=== PATIENT | female | born 1985 | race Caucasian/White ===

== ENCOUNTER 2023-12-08 09:18 | Emergency (ER) | payer OTHER, SELFPAY ==
[2023-12-08 09:28] VITALS: BP 116/82; PULSE 84
--- NOTE | 2023-12-08 09:33 | ED_ITS ---
HPI - Nausea/Vomiting/Diarrhea General Chief complaint: Medical Clearance Stated complaint: VOMITING AFTER MEALS,H/O BULIMIA,FROM [facility] Time Seen by Provider: 12/08/23 09:27 Source: patient and EMS Mode of arrival: EMS Limitations: no limitations History of Present Illness ED Provider: Dr. Fallon HPI Narrative: Patient has been in [facility] since 11/30. She is a bulemic and continues to vomit. She presents to have her electrolytes checked. Related Data Allergies Allergy/AdvReac Type Severity Reaction Status Date / Time No Known Allergies Allergy Verified 12/08/23 09:44 Review of Systems 2 Review of Systems: Yes all other systems are reviewed and are negative Neurologic: Denies Sensory deficit (Neuro) [facility] Social History Social History Advance Directives: No Advance Directives Information Provided: Yes Do you have a plan to hurt others: No Plan Physical Exam 2 Vital Signs: Vital Signs: Last Vital Signs Temp 98.3 F 12/08/23 10:25 Pulse 76 12/08/23 10:25 Resp 14 12/08/23 10:25 BP 92/63 12/08/23 10:25 Pulse Ox 97 12/08/23 10:25 O2 Del Method Room Air 12/08/23 10:25 BMI result Body Mass Index 23.6 Const: Other: thin female looking older than stated age Orientation/consciousness: oriented to person and patient oriented x3 L imitations: no limitations HEENT: Head: Yes normal to inspection Ears: external ears normal General nose exam: Normal external nose present Mouth: Normal oral and palatal mucosa present and oropharynx normal Throat: Yes posterior oropharynx normal Eyes: General: appearance normal, both eyes and all related structures Neck: Other: supple Neck: Yes normal visual inspection Chest: Chest palpation & inspection: normal inspection of the chest Resp: Auscultation: clear to auscultation bilaterally Cardio: Jugular venous distension: no JVD Rate: regular rate Rhythm: r egular rhythm Heart sounds: S1 normal heart sound present and S2 normal heart sound present GI: Inspection: Yes normal to inspection Palpation (GI): Soft to palpation, nontender and No hepatosplenomegaly present Auscultation: normal bowel sounds : General: Yes no CVA tenderness Back/Spine/Pelvis: Back: no CVA tenderness Skin: General skin exam: no rashes or lesions noted Neuro: General: oriented to person and patient oriented x3 Cranial nerves: Yes CN's II-XII intact bilaterally Motor exam (neuro): 5/5 motor strength present throughout Sensory Exam: No Sensory deficit (Neuro) Extrem: General: Yes normal to inspection Psych: Appearance: grossly normal Course Reevaluation(s) Reevaluation #1: patient with mild hypokalemia gave a dose of potassium and will dc back to [facility] Time: 11:03 Medical Decision Making Differential Diagnosis Differential Diagnoses: The differential diagnosis associated with the presentation includes (bulemia, anorexia, depression, viral gastritis) Admission/Observation Consideration of admission/observation: Escalation of care including admission/observation considered (upon arrival patient considered for admission) Lab Data 12/08/23 09:49 12/08/23 09:49 Labs: Lab Results 12/08/23 12/08/23 Range/Units 09:49 09:57 WBC 3.9 L (4.8-10.8) X10*3/uL RBC 4.85 (4.20-5.50) X10*6/uL Hgb 14.2 (12.0-16.0) g/dl Hct 41.1 (37.0-47.0) % MCV 84.7 (80.0-98.0) fL MCH 29.3 (27.0-33.0) pg MCHC 34.5 (31.0-35.0) g/dl RDW 13.4 (11.0-16.0) % Plt Count 254 (160-400) X10*3/uL MPV 10.3 (9.4-12.3) fL Immature Gran % (Auto) 0.3 (0.0-0.4) % Neut % (Auto) 39.8 L (45-73) % Lymph % (Auto) 43.9 H (20-40) % [place] % (Auto) 11.4 H (2-11) % Eos % (Auto) 3.6 (0-4) % Baso % (Auto) 1.0 (0-2) % Lymph # (Auto) 1.7 (1.2-4.9) X10*3/uL [place] # (Auto) 0.4 (0.1-1.2) X10*3/uL Eos # (Auto) 0.1 (0.0-0.4) X10*3/uL Baso # (Auto) 0.0 (0.0-0.2) X10*3/uL Abs Immat Gran (auto) 0.01 (0.00-0.03) X10*3/uL Absolute Neuts (auto) 1.5 L (2.0-8.3) x10*3/uL Absolute Nucleated RBC 0.000 (0.0-0.012) X10*3/uL Nucleated RBC % (auto) 0.0 (0.0-0.2) /100WBC Sodium 138 (135-145) mmol/L Potassium 3.1 L (3.3-5.1) mmol/L Chloride 100 (96-108) mmol/L Carbon Dioxide 29 (22-29) mmol/L Anion Gap 12 (12-20) BUN 5 L (9-16) mg/dL Creatinine 0.91 (0.5-1.4) mg/dL Estim Creat Clear Calc 64.4 Estimated GFR > 60 Random Glucose 118 H (60-115) mg/dL Calcium 9.4 (8.4-10.2) mg/dL Magnesium 1.9 (1.6-2.6) mg/dL Total Bilirubin 0.5 (0.0-1.0) mg/dL AST 11 (5-31) U/L ALT 6 (0-31) U/L Alkaline Phosphatase 64 (39-117) U/L Total Protein 6.9 (6.5-8.0) g/dL Albumin 3.8 (3.5-5.0) g/dL Urine Test NEGATIVE (NEGATIVE) Independent Historian Clinical information obtained from an independent historian. History obtained from or confirmed by: EMS Tests considered The following testing was considered but not selected: CT abd/pelvis but no focal pain will not obtain Chronic Conditions Patient?s care impacted by: Other (depression and bulemia) Social Determinants Patient?s care significantly limited by Social Determinants of Health including: Alcoholism and drug addiction in family Discharge Plan Discharge Clinical Impression: Anorexia nervosa with bulimia, Polysubstance abuse Patient Disposition: Home, Self-Care Instructions: Anorexia Nervosa (ED), Polysubstance Abuse (ED) Referrals: Physician,None [Primary Care Provider] - 1 week Print Language: Slovak
[2023-12-08 09:38] VITALS: BP 93/61; PULSE 80; RESP 14; TEMP 36.9; O2SAT 99; BMI 23.6
[2023-12-08 09:57] LABS: MANUAL DIFF FLAG NO
[2023-12-08 10:00] LABS: Eosinophils Absolute Auto 0.1 X10*3/uL (0.0-0.4); Eosinophils Percent Auto 3.6 % (0-4); Hematocrit 41.1 % (37.0-47.0); Hemoglobin 14.2 g/dl (12.0-16.0); Imm Gran Abs Auto 0.01 X10*3/uL (0.00-0.03); Imm Gran Pct Auto 0.3 % (0.0-0.4); Lymphocytes Absolute Auto 1.7 X10*3/uL (1.2-4.9); Lymphocytes Percent Auto 43.9 % (20-40); Mean Corpuscular HGB Conc 34.5 g/dl (31.0-35.0); Mean Corpuscular Hemoglobin 29.3 pg (27.0-33.0); Mean Corpuscular Volume 84.7 fL (80.0-98.0); Mean Platelet Volume 10.3 fL (9.4-12.3); Monocytes Absolute Auto 0.4 X10*3/uL (0.1-1.2); Monocytes Percent Auto 11.4 % (2-11); Neutrophils Absolute Auto 1.5 x10*3/uL (2.0-8.3); Neutrophils Percent Auto 39.8 % (45-73); Platelet Count 254 X10*3/uL (160-400); Red Blood Count 4.85 X10*6/uL (4.20-5.50); Red Cell Distribution Width 13.4 % (11.0-16.0); White Blood Count 3.9 X10*3/uL (4.8-10.8)
[2023-12-08 10:13] LABS: UPreg QC Valid YES
[2023-12-08 10:14] LABS: Alanine Aminotransferase 6 U/L (0-31); Albumin Level 3.8 g/dL (3.5-5.0); Alkaline Phosphatase 64 U/L (39-117); Anion Gap 12 (12-20); Aspartate Amino Transferase 11 U/L (5-31); Bilirubin Total 0.5 mg/dL (0.0-1.0); Blood Urea Nitrogen 5 mg/dL (9-16); Calcium 9.4 mg/dL (8.4-10.2); Carbon Dioxide 29 mmol/L (22-29); Chloride 100 mmol/L (96-108); Creatinine Clr Calc Pharmacy 64.4; Estimated Glomerular Filt Rate > 60; Glucose Random 118 mg/dL (60-115); Magnesium 1.9 mg/dL (1.6-2.6); Potassium 3.1 mmol/L (3.3-5.1); Sodium 138 mmol/L (135-145); Total Protein 6.9 g/dL (6.5-8.0)
[2023-12-08 10:15] LABS: Urine Pregnancy NEGATIVE (NEGATIVE)
[2023-12-08 10:25] VITALS: BP 92/63; PULSE 76; RESP 14; TEMP 36.8; O2SAT 97
[2023-12-08] MEDS: Potassium Chloride ER 20 MEQ TAB.ER.PRT PO (11:22)
[2023-12-08 11:28] VITALS: BP 108/75; PULSE 68; RESP 14; TEMP 36.8; O2SAT 97
[2023-12-08 12:05] VITALS: BP 108/75; PULSE 68; RESP 14; TEMP 36.8; O2SAT 97
== END 2023-12-08 12:06 | disposition home or self-care (01) ==
PROVIDERS: Emergency Provider Emergency Medicine
DX: R11.2 Nausea with vomiting, unspecified (principal); F50.00 Anorexia nervosa, unspecified; Z68.23 Body mass index [BMI] 23.0-23.9, adult; Z79.899 Other long term (current) drug therapy
CPT/HCPCS: 36415; 80053; 81025; 83735; 85025; 99283; 99284

== ENCOUNTER 2023-12-10 16:46 | Emergency (ER) | payer OTHER, SELFPAY ==
[2023-12-10 17:05] VITALS: BP 86/54; BP 96/65; PULSE 80; PULSE 90; RESP 16; TEMP 37; O2SAT 96; O2SAT 97; BMI 21.1
[2023-12-10 17:41] LABS: MANUAL DIFF FLAG NO
[2023-12-10 17:48] LABS: Basophils Percent Auto 0.9 % (0-2); Eosinophils Absolute Auto 0.1 X10*3/uL (0.0-0.4); Eosinophils Percent Auto 3.4 % (0-4); Hematocrit 39.9 % (37.0-47.0); Hemoglobin 14.1 g/dl (12.0-16.0); Lymphocytes Absolute Auto 1.8 X10*3/uL (1.2-4.9); Lymphocytes Percent Auto 51.1 % (20-40); Mean Corpuscular HGB Conc 35.3 g/dl (31.0-35.0); Mean Corpuscular Hemoglobin 29.3 pg (27.0-33.0); Mean Corpuscular Volume 82.8 fL (80.0-98.0); Mean Platelet Volume 10.9 fL (9.4-12.3); Monocytes Absolute Auto 0.4 X10*3/uL (0.1-1.2); Monocytes Percent Auto 11.1 % (2-11); Neutrophils Absolute Auto 1.2 x10*3/uL (2.0-8.3); Neutrophils Percent Auto 33.5 % (45-73); Platelet Count 244 X10*3/uL (160-400); Red Blood Count 4.82 X10*6/uL (4.20-5.50); Red Cell Distribution Width 13.1 % (11.0-16.0); White Blood Count 3.5 X10*3/uL (4.8-10.8)
[2023-12-10 17:58] LABS: Appearance Urine Hazy; Color Urine Yellow; Glucose Urine UA Negative (Negative); Leukocyte Esterase Urine Negative (Negative); Nitrite Urine Negative (Negative); UMIC TRIGGER UACC YES; Urine Blood Negative (Negative); Urine Ketones Negative (Negative); Urine Protein 30 (1+) mg/dL (Neg-Trace)
[2023-12-10 18:00] VITALS: BP 92/66; PULSE 74; RESP 16; O2SAT 96
[2023-12-10 18:08] LABS: Bacteria Urine Trace (None Seen); Hyaline Casts Urine 0-2 /LPF (0-2); RBC Urine 0-2 /HPF (0-2); WBC Urine 0-5 /HPF (0-5)
--- NOTE | 2023-12-10 18:38 | ED.GENADULT ---
HPI - General Adult General Chief complaint: General Medical Stated complaint: Hypotension, physician requesting labs and fluids Time Seen by Provider: 12/10/23 17:49 History of Present Illness ED Provider: Dr. Price HPI narrative: 38 y/o F patient; PMH substance abuse; presents from [facility] with concern for episode of hypotension. The patient states for the last several days she has had decreased PO intake. However she states this is due to her menstrual period and denies any acute complaints. Denies: nausea/vomiting, abdominal pain, fever or chills, chest pain, SOB, cough/congestion, diarrhea. Related Data Allergies Allergy/AdvReac Type Severity Reaction Status Date / Time morphine Allergy Hives Verified 12/10/23 17:20 paroxetine [From Paxil] Allergy Hives Verified 12/10/23 17:20 Review of Systems Review of Systems: Yes all other systems are reviewed and are negative Neurologic: Denies Sensory deficit (Neuro) PMFSH Past Medical History Attestation statement: The following information was validated with the patient. Source: unable to obtain Social History Social History Smoked in Last 30 Days: No Use of substances other than those prescribed or required for medical reasons: No Advance Directives: No Advance Directives Information Provided: No Patient : No Physical Exam ED Vital Signs: Vital Signs - 24 hr 12/10/23 17:05 12/10/23 18:00 12/10/23 21:01 Temperature 98.6 F 98.2 F Pulse Rate 80 74 70 Respiratory Rate 16 16 16 Blood Pressure 96/65 92/66 96/60 Pulse Oximetry 96 96 95 Oxygen Delivery Method Room Air Room Air Room Air BMI result Body Mass Index 21.1 Patient is afebrile and hemodynamically stable. Const General: cooperative and no acute distress Orientation/consciousness: patient oriented x3 HENMT Head: Yes normal to inspection and Yes atraumatic Eyes General: appearance normal, both eyes and all related structures Pupils: Equal, round and reactive pupils present EOM: EOMs intact bilaterally Neck Neck: Yes normal visual inspection, Yes full ROM, Yes supple and No tender Chest Chest palpation & inspection: normal inspection of the chest and normal palpation of entire chest wall Resp Effort & Inspection: normal respiratory effort, able to speak in complete sentences, no cough and no respiratory distress Auscultation: clear to auscultation bilaterally Cardio Rate: regular rate Rhythm: regular rhythm Peripheral pulses: Peripheral pulses 2+ throughout GI Inspection: Yes normal to inspection, No Abdominal wall edema and No distended Palpation (GI): Soft to palpation, not firm, nontender, no guarding and not rigid Auscultation: normal bowel sounds General: Yes no CVA tenderness Back/Spine/Pelvis Back: no CVA tenderness Neuro General: patient oriented x3 Cranial nerves: Yes Equal, round and reactive pupils present Motor exam (neuro): 5/5 motor strength present throughout Sensory Exam: No Sensory deficit (Neuro) Course Course Course Narrative: Patient is afebrile and hemodynamically stable. Reviewed triage labs - added beta hcg quant. Providing 1L IVF. Labs reviewed. Potassium 2.9. Added magnesium level. Providing Potassium 40 mEq PO and 10mg IV. Magnesium 2.0. Patient tolerating turkey sandwich without difficulty. Plan: Discharge to home with PCP follow up Return precautions given Medications Administered Discontinued Medications Generic Name Dose Route Start Last Admin Trade Name Freq PRN Reason Stop Dose Admin Sodium Chloride 1,000 mls @ 999 mls/hr 12/10/23 18:45 12/10/23 20:21 Ns IV 12/10/23 19:45 999 mls/hr .Q1H1M TIMO Administration Potassium Chloride 10 meq in 100 mls @ 100 mls/hr 12/10/23 19:06 12/10/23 20:22 Potassium Chloride/H20 IV 12/10/23 20:05 100 mls/hr ONCE ONE Administration Potassium Chloride 40 meq 12/10/23 19:06 12/10/23 20:37 Potassium Chloride Er 20 Meq Tab.Er.Prt PO 12/10/23 19:07 40 meq ONCE ONE Administration Medical Decision Making Lab Data 12/10/23 17:34 12/10/23 17:34 Labs: Lab Results 12/10/23 12/10/23 Range/Units 17:34 17:43 WBC 3.5 L (4.8-10.8) X10*3/uL RBC 4.82 (4.20-5.50) X10*6/uL Hgb 14.1 (12.0-16.0) g/dl Hct 39.9 (37.0-47.0) % MCV 82.8 (80.0-98.0) fL MCH 29.3 (27.0-33.0) pg MCHC 35.3 H (31.0-35.0) g/dl RDW 13.1 (11.0-16.0) % Plt Count 244 (160-400) X10*3/uL MPV 10.9 (9.4-12.3) fL Immature Gran % (Auto) 0.0 (0.0-0.4) % Neut % (Auto) 33.5 L (45-73) % Lymph % (Auto) 51.1 H (20-40) % [place] % (Auto) 11.1 H (2-11) % Eos % (Auto) 3.4 (0-4) % Baso % (Auto) 0.9 (0-2) % Lymph # (Auto) 1.8 (1.2-4.9) X10*3/uL [place] # (Auto) 0.4 (0.1-1.2) X10*3/uL Eos # (Auto) 0.1 (0.0-0.4) X10*3/uL Baso # (Auto) 0.0 (0.0-0.2) X10*3/uL Abs Immat Gran (auto) 0.00 (0.00-0.03) X10*3/uL Absolute Neuts (auto) 1.2 L (2.0-8.3) x10*3/uL Absolute Nucleated RBC 0.000 (0.0-0.012) X10*3/uL Nucleated RBC % (auto) 0.0 (0.0-0.2) /100WBC Sodium 133 L (135-145) mmol/L Potassium 2.9 L* (3.3-5.1) mmol/L Chloride 93 L (96-108) mmol/L Carbon Dioxide 30 H (22-29) mmol/L Anion Gap 13 (12-20) BUN 5 L (9-16) mg/dL Creatinine 0.90 (0.5-1.4) mg/dL Estim Creat Clear Calc 60.3 Estimated GFR > 60 Random Glucose 87 (60-115) mg/dL Calcium 9.2 (8.4-10.2) mg/dL Magnesium 2.0 (1.6-2.6) mg/dL Total Bilirubin 0.5 (0.0-1.0) mg/dL AST 13 (5-31) U/L ALT 7 (0-31) U/L Alkaline Phosphatase 64 (39-117) U/L Total Protein 7.1 (6.5-8.0) g/dL Albumin 4.0 (3.5-5.0) g/dL Lipase 23 (8-78) U/L Beta-Hydroxybutyrate 0.04 (0.02-0.27) mmol/L Urine Color Yellow Urine Appearance Hazy Urine pH 6.0 (5.0-9.0) Ur Specific [place] 1.020 (1.005-1.025) Urine Protein 30 (1+) H (Neg-Trace) mg/dL Urine Glucose (UA) Negative (Negative) mg/dL Urine Ketones Negative (Negative) mg/dL Urine Blood Negative (Negative) Urine Nitrite Negative (Negative) Ur Leukocyte Esterase Negative (Negative) Urine RBC 0-2 (0-2) /HPF Urine WBC 0-5 (0-5) /HPF Ur Squamous Epith Cells 6-10 (0-2) /HPF Urine Bacteria Trace (None Seen) Hyaline Casts 0-2 (0-2) /LPF Discharge Plan Discharge Clinical Impression: Hypokalemia Patient Disposition: Home, Self-Care Instructions: Hypokalemia (ED) Additional Instructions: As we discussed, you were seen today due to concern for your blood pressure. You were found to have a low potassium so were treated with IV and pill potassium. Your blood pressure improved with a L of IV fluid. Recommend you follow up with your PCP within the next 2 days for re-evaluation. Return to the emergency department for: Abdominal pain Fever over 100.4F Print Language: Turkmen
[2023-12-10 19:02] LABS: Beta-Hydroxybutyrate 0.04 mmol/L (0.02-0.27)
[2023-12-10 19:03] LABS: Alanine Aminotransferase 7 U/L (0-31); Alkaline Phosphatase 64 U/L (39-117); Anion Gap 13 (12-20); Aspartate Amino Transferase 13 U/L (5-31); Bilirubin Total 0.5 mg/dL (0.0-1.0); Blood Urea Nitrogen 5 mg/dL (9-16); Calcium 9.2 mg/dL (8.4-10.2); Carbon Dioxide 30 mmol/L (22-29); Chloride 93 mmol/L (96-108); Creatinine Clr Calc Pharmacy 60.3; Estimated Glomerular Filt Rate > 60; Glucose Random 87 mg/dL (60-115); Potassium 2.9 mmol/L (3.3-5.1); Sodium 133 mmol/L (135-145); Total Protein 7.1 g/dL (6.5-8.0)
[2023-12-10 19:26] LABS: Lipase 23 U/L (8-78)
[2023-12-10] MEDS: 0.9 % Sodium Chloride 1,000 ML 999 ML IV (20:21)
[2023-12-10] MEDS: Potassium Chloride/H20 10 MEQ/100 ML PIGGYBACK 100 MEQ IV (20:22)
[2023-12-10] MEDS: Potassium Chloride ER 20 MEQ TAB.ER.PRT 40 MEQ PO (20:37)
[2023-12-10 21:01] VITALS: BP 96/60; PULSE 70; RESP 16; TEMP 36.8; O2SAT 95
[2023-12-10 22:18] VITALS: BP 90/62; PULSE 71; RESP 16; TEMP 36.9; O2SAT 96
[2023-12-10 22:25] VITALS: BP 90/62; PULSE 71; RESP 16; TEMP 36.9; O2SAT 96
== END 2023-12-10 23:30 | disposition home or self-care (01) ==
PROVIDERS: Emergency Provider Emergency Medicine
DX: E87.6 Hypokalemia (principal); R03.1 Nonspecific low blood-pressure reading
CPT/HCPCS: 36415; 80053; 81001; 82010; 83690; 83735; 85025; 96361; 96374; 99284; 99285; J3480

== ENCOUNTER 2023-12-16 05:08 | Emergency (ER) | payer OTHER, SELFPAY ==
[2023-12-16 05:13] VITALS: BP 72/60; BP 98/65; PULSE 68; RESP 16; TEMP 36.6; O2SAT 97; O2SAT 98; BMI 21.8
[2023-12-16 05:24] VITALS: O2SAT 97
[2023-12-16 05:41] LABS: Basophils Absolute Auto 0.1 X10*3/uL (0.0-0.2); Basophils Percent Auto 0.9 % (0-2); Eosinophils Absolute Auto 0.2 X10*3/uL (0.0-0.4); Eosinophils Percent Auto 3.5 % (0-4); Hematocrit 39.2 % (37.0-47.0); Hemoglobin 14.2 g/dl (12.0-16.0); Lymphocytes Absolute Auto 2.8 X10*3/uL (1.2-4.9); Lymphocytes Percent Auto 51.8 % (20-40); MANUAL DIFF FLAG NO; Mean Corpuscular HGB Conc 36.2 g/dl (31.0-35.0); Mean Corpuscular Hemoglobin 29.5 pg (27.0-33.0); Mean Corpuscular Volume 81.5 fL (80.0-98.0); Mean Platelet Volume 11.1 fL (9.4-12.3); Monocytes Absolute Auto 0.4 X10*3/uL (0.1-1.2); Neutrophils Percent Auto 36.8 % (45-73); Platelet Count 201 X10*3/uL (160-400); Red Blood Count 4.81 X10*6/uL (4.20-5.50); Red Cell Distribution Width 12.8 % (11.0-16.0); White Blood Count 5.4 X10*3/uL (4.8-10.8)
[2023-12-16 05:54] LABS: Alanine Aminotransferase 9 U/L (0-31); Albumin Level 3.8 g/dL (3.5-5.0); Alkaline Phosphatase 68 U/L (39-117); Anion Gap 11 (12-20); Aspartate Amino Transferase 14 U/L (5-31); Bilirubin Total 0.3 mg/dL (0.0-1.0); Blood Urea Nitrogen 5 mg/dL (9-16); Calcium 9.2 mg/dL (8.4-10.2); Carbon Dioxide 30 mmol/L (22-29); Chloride 100 mmol/L (96-108); Creatinine Clr Calc Pharmacy 62.3; Estimated Glomerular Filt Rate > 60; Glucose Random 90 mg/dL (60-115); Magnesium 1.9 mg/dL (1.6-2.6); Phosphorus 3.9 mg/dL (2.7-4.5); Potassium 3.1 mmol/L (3.3-5.1); Sodium 138 mmol/L (135-145); Total Protein 6.8 g/dL (6.5-8.0)
[2023-12-16 06:15] VITALS: BP 102/72; PULSE 58; RESP 16; O2SAT 97
--- NOTE | 2023-12-16 07:04 | ED_ITS ---
HPI - General Adult General Chief complaint: Failure to Thrive Stated complaint: failure to thrive Time Seen by Provider: 12/16/23 06:47 Source: patient and EMS Mode of arrival: EMS Limitations: no limitations History of Present Illness ED Provider: Jose WEBB HPI narrative: This is a 38-year-old female history of anorexia, asthma, bipolar disorder presenting from [facility] which she has been at since 12/01/2023 presenting with vomiting, not eating and low blood pressures at [facility]. She reports that she does not want to eat as she feels like she will get fat. She reports she feels fine and nothing is hurting her. She tells me she is suicidal with no particular plan. Not homicidal. Denies drugs, alcohol and tobacco. Denies visual, auditory and tactile hallucinations. Denies chest pain, palpitations, shortness of breath, headache, vision changes, dizziness, weakness. Related Data Allergies Allergy/AdvReac Type Severity Reaction Status Date / Time morphine Allergy Hives Verified 12/16/23 05:16 paroxetine [From Paxil] Allergy Hives Verified 12/16/23 05:16 Review of Systems 2 Review of Systems: Yes all other systems are reviewed and are negative PMFSH Past Medical History Attestation statement: The following information was validated with the patient. Source: old records reviewed and nursing notes reviewed Social History Social History Smoked in Last 30 Days: Yes Use of substances other than those prescribed or required for medical reasons: Yes Substance Use Type: Marijuana Substance Use Frequency: Daily Advance Directives: No Advance Directives Information Provided: Yes Do you have a plan to hurt others: No Plan Patient : No Physical Exam ED Vital Signs: Vital Signs - 24 hr 12/16/23 05:13 12/16/23 05:24 12/16/23 06:15 Temperature 97.9 F Pulse Rate 68 58 Respiratory Rate 16 16 Blood Pressure 98/65 102/72 Pulse Oximetry 97 97 97 Oxygen Delivery Method Room Air Room Air Room Air 12/16/23 08:01 Temperature Pulse Rate 69 Respiratory Rate 16 Blood Pressure 90/63 Pulse Oximetry 98 Oxygen Delivery Method Room Air BMI result Body Mass Index 21.8 vss Appearance: Alert.? Oriented X3.? No acute distress.? + cachectic appearing Head: Normocephalic, atraumatic, no step-offs or deformities Eyes: Pupils equal, round and reactive to light.? Neck: Normal inspection.? Neck supple.? CVS: Normal heart rate and rhythm.? Pulses normal.? Respiratory: No respiratory distress.? Breath sounds normal.? Abdomen: Soft and nontender.? Skin: Skin warm and dry.? Normal skin color.? Normal skin turgor.? Extremities: No lower extremity edema.? No calf ttp. 5/5 strength to bilateral upper and lower extremities Neuro: Oriented X 3.? No motor deficit.? No sensory deficit. CN 2-12 intact Course Reevaluation(s) Reevaluation #1: CBC no acute findings requiring intervention. Chemistry with low potassium of 3.1, potassium will be repleted. Magnesium normal 1.9. IVF running . Patient will receive PO potassium at this time and IVF. Orthostatic vital signs pending. Time: 07:13 Reevaluation #2: Chemistry improved. Veda Kumar requesting labs. Patient to be discharged back with her labs. Blood pressure improved. Educated patient on diagnosis and treatment plan, answered all question, patient verbalizes understanding. At this time patient will be discharged home, advised to return with new or worsening symptoms. Educated on worrisome signs and symptoms and when to return. At this time I feel comfortable discharge home. Time: 09:35 Medications Administered Discontinued Medications Generic Name Dose Route Start Last Admin Trade Name Freq PRN Reason Stop Dose Admin Sodium Chloride 1,000 mls @ 999 mls/hr 12/16/23 07:15 12/16/23 08:38 Ns IV 12/16/23 08:15 Infused .Q1H1M TIMO Infusion Potassium Chloride 20 meq 12/16/23 07:57 12/16/23 08:02 Potassium Chloride Er 20 Meq Tab.Er.Prt PO 12/16/23 07:58 20 meq ONCE ONE Administration Medical Decision Making Medical Decision Making [facility] Narrative: [id number] 38-year-old female presents with failure to thrive not eating or drinking Veda [place] sent in due to multiple low blood pressure readings. Physical exam patient cachectic appearing. History and physical exam concerning for anorexia and bulimia and concerning for possible metabolic derangements. Will rule out electrolyte abnormalities, dysrhythmias. Also concerned for bipolar and suicidal ideation. No homicidal ideation. Plan at this time labs, urine. Differential Diagnosis Differential Diagnoses: The differential diagnosis associated with the presentation includes History and physical exam concerning for anorexia and bulimia and concerning for possible metabolic derangements. Will rule out electrolyte abnormalities, dysrhythmias. Also concerned for bipolar and suicidal ideation. No homicidal ideation. Admission/Observation Consideration of admission/observation: Escalation of care including admission/observation considered Possible Lab Data MDM Lab Attestation statement: I reviewed the patient's lab results. 12/16/23 05:34 12/16/23 08:30 Labs: Lab Results 12/16/23 12/16/23 Range/Units 05:34 08:30 WBC 5.4 (4.8-10.8) X10*3/uL RBC 4.81 (4.20-5.50) X10*6/uL Hgb 14.2 (12.0-16.0) g/dl Hct 39.2 (37.0-47.0) % MCV 81.5 (80.0-98.0) fL MCH 29.5 (27.0-33.0) pg MCHC 36.2 H (31.0-35.0) g/dl RDW 12.8 (11.0-16.0) % Plt Count 201 (160-400) X10*3/uL MPV 11.1 (9.4-12.3) fL Immature Gran % (Auto) 0.0 (0.0-0.4) % Neut % (Auto) 36.8 L (45-73) % Lymph % (Auto) 51.8 H (20-40) % [place] % (Auto) 7.0 (2-11) % Eos % (Auto) 3.5 (0-4) % Baso % (Auto) 0.9 (0-2) % Lymph # (Auto) 2.8 (1.2-4.9) X10*3/uL [place] # (Auto) 0.4 (0.1-1.2) X10*3/uL Eos # (Auto) 0.2 (0.0-0.4) X10*3/uL Baso # (Auto) 0.1 (0.0-0.2) X10*3/uL Abs Immat Gran (auto) 0.00 (0.00-0.03) X10*3/uL Absolute Neuts (auto) 2.0 (2.0-8.3) x10*3/uL Absolute Nucleated RBC 0.000 (0.0-0.012) X10*3/uL Nucleated RBC % (auto) 0.0 (0.0-0.2) /100WBC Sodium 138 140 (135-145) mmol/L Potassium 3.1 L 3.4 (3.3-5.1) mmol/L Chloride 100 103 (96-108) mmol/L Carbon Dioxide 30 H 32 H (22-29) mmol/L Anion Gap 11 L 8 L (12-20) BUN 5 L 5 L (9-16) mg/dL Creatinine 0.87 0.83 (0.5-1.4) mg/dL Estim Creat Clear Calc 62.3 65.3 Estimated GFR > 60 > 60 Random Glucose 90 80 (60-115) mg/dL Calcium 9.2 8.4 D (8.4-10.2) mg/dL Phosphorus 3.9 (2.7-4.5) mg/dL Magnesium 1.9 (1.6-2.6) mg/dL Total Bilirubin 0.3 (0.0-1.0) mg/dL AST 14 (5-31) U/L ALT 9 (0-31) U/L Alkaline Phosphatase 68 (39-117) U/L Total Creatine Kinase 41 (26-140) U/L Total Protein 6.8 (6.5-8.0) g/dL Albumin 3.8 (3.5-5.0) g/dL Beta HCG, Quant < 2 mIU/mL External Record Review External record reviewed: Outpatient record and Prior outpatient labs Chronic Conditions Patient?s care impacted by: Other (Asthma, bipolar, bulimia, anorexia) Critical Care Time Critical Care Time Critical Care Time: Yes Total Critical Care Time: 35 Attestation: I attest to this time spent taking care of the patient, obtaining history, physical, reviewing labs, imaging, speaking to my attending, specialist or hospitalist. Discharge Plan Discharge Clinical Impression: Anorexia, Bulimia, Hypotension Patient Disposition: er [facility] Transfer Details: Veda Kumar Instructions: Anorexia Nervosa (ED), Bulimia Nervosa (ED) Additional Instructions: Take your medications as prescribed. If you were prescribed antibiotics today, it is important that you take your medication to their entirety, do not skip any doses, do not finish them early. Follow-up with your primary care provider this week. Return to the emergency department with new or worsening symptoms. Such as fevers, chills, chest pain, shortness of breath, nausea, vomiting, dizziness, headache, vision changes, lethargy In case of emergency call 911 Patient's laboratory studies were attached do discharge paperwork. Referrals: Physician,Unknown J [Primary Care Provider] - 2 days Stand Alone Forms: Work/School Release Print Language: Kyrgyz
[2023-12-16] MEDS: 0.9 % Sodium Chloride 1,000 ML 999 ML IV (07:40)
[2023-12-16 07:48] LABS: HCG Quantitative < 2 mIU/mL
[2023-12-16 08:01] VITALS: BP 90/63; PULSE 69; RESP 16; O2SAT 98
[2023-12-16] MEDS: Potassium Chloride ER 20 MEQ TAB.ER.PRT PO (08:02)
[2023-12-16 08:53] LABS: Anion Gap 8 (12-20); Blood Urea Nitrogen 5 mg/dL (9-16); Calcium 8.4 mg/dL (8.4-10.2); Carbon Dioxide 32 mmol/L (22-29); Chloride 103 mmol/L (96-108); Creatinine Clr Calc Pharmacy 65.3; Estimated Glomerular Filt Rate > 60; Glucose Random 80 mg/dL (60-115); Potassium 3.4 mmol/L (3.3-5.1); Sodium 140 mmol/L (135-145)
--- NOTE | 2023-12-16 09:34 | ECG_ITS ---
Test Reason : LOW K Blood Pressure : / mmHG Vent. Rate : 055 BPM Atrial Rate : 055 BPM P-R Int : 154 ms QRS Dur : 096 ms QT Int : 478 ms P-R-T Axes : 019 028 081 degrees QTc Int : 457 ms Sinus bradycardia Nonspecific T wave abnormality Abnormal ECG No previous ECGs available Referred By: Donald Sorenson Electronically Signed By:Gibson Charles
--- NOTE | 2023-12-16 11:55 | PC.NURSE ---
pt resting comfortably in bed, pt requesting tea - she was given this. NAD, resting in bed awaiting transport
[2023-12-16 12:52] VITALS: BP 93/64; PULSE 71; RESP 18; TEMP 36.6; O2SAT 97
[2023-12-16 13:36] VITALS: BP 93/64; PULSE 71; RESP 18; TEMP 36.6; O2SAT 97
== END 2023-12-16 13:37 ==
PROVIDERS: Physician Assistant; Emergency Provider Internal Medicine
DX: F50.2 Bulimia nervosa (principal); Z68.21 Body mass index [BMI] 21.0-21.9, adult; I95.9 Hypotension, unspecified
CPT/HCPCS: 36415; 80048; 80053; 82550; 83735; 84100; 84702; 85025; 93005; 96360; 99284; 99285

== ENCOUNTER → 2023-12-16 09:34 | Outpatient (BNV) | payer OTHER, SELFPAY | PROVIDERS: Emergency Provider Internal Medicine; Visit Provider Internal Medicine Cardiovascular Disease | DX: R00.1 Bradycardia, unspecified (principal); R94.31 Abnormal electrocardiogram [ECG] [EKG] | CPT/HCPCS: 93010 ==